=== PATIENT | female | born 1975 | race Two or more races ===

== ENCOUNTER 2025-03-15 19:40 | Inpatient (IN) | payer MEDICAID, SELFPAY ==
[2025-03-15 19:41] VITALS: BMI 32.1
[2025-03-15 19:50] VITALS: BP 117/82; PULSE 82; RESP 18; TEMP 37.1; O2SAT 97
--- NOTE | 2025-03-15 20:06 | XR_ITS ---
Examination: CT abdomen with intravenous contrast CT pelvis with intravenous contrast 2-D coronal reconstructions 2-D sagittal reconstructions Date and time of exam:March 15, 2025 at 11:37 PM INDICATIONS: Left lower abdominal pain onset today. CTDI: vol (mGy) 8.70 DLP: (mGycm) 451 Technique: Multiple axial sections of the abdomen and pelvis have been obtained. 64 slice high-resolution scanner used. 3 mm axial sections have been obtained, post intravenous injection 60 cc Isovue 370 2-D sagittal, coronal reconstructions obtained. Low dose protocols were performed. One or more of the following dose reduction techniques were used; automated exposure control, adjustment of the mA and/or KV according to patient size, use of iterative reconstruction technique. Findings: No focal liver or splenic lesions Absent gallbladder No pancreatic or adrenal mass No renal or ureteral calculi, no hydronephrosis No bowel obstruction No pericecal inflammatory change Colonic diverticulosis, acute diverticulitis distal descending colon and sigmoid colon No peridiverticular abscess Bilateral intact IMPRESSION: Acute diverticulitis junction distal descending colon and sigmoid colon No peridiverticular abscess
--- NOTE | 2025-03-15 20:06 | PD.EDRME ---
Rapid Medical Screening Exam [facility] Arrival date/time: 03/15/25 19:40 50F with history of cholecystectomy presents to ED with several days of LLQ pain. Patient denies dysuria and vaginal bleeding. Some N/V. Chief Complaint: Abdominal Pain Vital signs: Vital Signs Temperature 98.8 F 03/15/25 19:50 Pulse Rate 82 03/15/25 19:50 Respiratory Rate 18 03/15/25 19:50 Blood Pressure 117/82 03/15/25 19:50 Pulse Oximetry (%) 97 03/15/25 19:50 Oxygen Delivery Method Room Air 03/15/25 19:50
[2025-03-15 20:54] LABS: Basophils # (Auto) 0.1 Thou/mm3 (0.0-0.2); Basophils % (Auto) 0 % (0-2.5); Eosinophils # (Auto) 0.3 Thou/mm3 (0.0-0.5); Eosinophils % (Auto) 2 % (0-10); Hematocrit 38.8 % (36.0-46.0); Hemoglobin 13.9 g/dL (12.0-16.0); Immature Granulocytes % (Auto) 0 % (0-0); Immature Granulocytes Auto 0.03 Thou/mm3 (0.00-0.00); Lymphocytes % (Auto) 16 % (10-50); Mean Corpuscular HGB Conc 35.8 g/dl (31.0-37.0); Mean Corpuscular Hemoglobin 31.6 pg (25.0-35.0); Mean Corpuscular Volume 88 fL (80-100); Monocytes # (Auto) 1.2 Thou/mm3 (0.0-0.8); Monocytes % (Auto) 9 % (0-12); Neutrophils # (Auto) 9.1 Thou/mm3 (1.8-7.7); Neutrophils % (Auto) 72 % (37-80); Nucleated Red Blood Cell % 0 /100 WBC (0); Platelet Count 371 Thou/mm3 (140-440); RDW Standard Deviation 39.8 fL (36.4-46.3); White Blood Count 12.7 Thou/mm3 (3.6-11.0)
[2025-03-15 21:08] LABS: Alanine Aminotransferase 58 U/L (10-49); Albumin, Serum 4.5 gm/dL (3.5-5.0); Albumin/Globulin Ratio 1.6 (1.2-2.2); Alkaline Phosphatase 122 U/L (46-116); Anion Gap 7 (7-16); Aspartate Amino Transferase 38 U/L (0-34); BUN/Creatinine Ratio 14 Ratio (12-20); Bilirubin,Total 0.8 mg/dL (0.3-1.2); Blood Urea Nitrogen 11 mg/dL (9-23); Calcium 9.2 mg/dL (8.3-10.6); Calcium (Corrected) 9.2 mg/dL (8.5-10.1); Carbon Dioxide 26.9 mMol/L (20.0-31.0); Chloride 103 mMol/L (98-107); Creatinine (Component) 0.8 mg/dL (0.6-1.3); Estimated Creatinine Clearance 77.3 mL/min (>60); Globulin 2.8 gm/dL (2.3-3.5); Glucose 114 mg/dL (74-106); Lipase 31 U/L (12-53); Osmolality,Calculated 274 (275-295); Potassium 3.9 mMol/L (3.4-5.1); Sodium 137 mMol/L (136-145); Total Protein 7.3 gm/dL (5.7-8.2); eGFR > 60 See Note
[2025-03-15 21:23] LABS: Collection Type, Urine Clean Catch; RBC,Urine 0 /hpf (0-3)
[2025-03-15 21:46] LABS: Bacteria,Urine Rare; Bilirubin,Urine Negative (Negative); Blood,Urine Negative (Negative); Clarity,Urine Clear (Clear/Hazy); Color,Urine Lt-Yellow (Lt Yel-Yel); Glucose, Urine Negative (Negative); Ketones,Urine Negative (Negative); Leukocyte Esterase,Urine Positive (Negative); Nitrite,Urine Negative (Negative); PH,Urine 6.5 (5.0-7.0); Protein,Urine Negative (Neg - Trace); Specific Gravity,Urine 1.018 (1.001-1.035); Squamous Epithelial Cell,Urine 2 /hpf (0-5); Urobilinogen,Urine Negative mg/dL (0.0-1.0); WBC,Urine 12 /hpf (0-5)
[2025-03-15 23:09] LABS: HCG Qualitative,Urine Negative
[2025-03-16] VITALS (10 sets, daily range): BP systolic 94–155; BP diastolic 60–81; PULSE 70–88; RESP 16–99; TEMP 36.1–37.2; O2SAT 95–100; BMI 30.2
[2025-03-16] MEDS: PIPER/TAZO 3.375 GM PREMIX 3.375 GM/50 ML BAG IV ×3 (01:05→17:26)
[2025-03-16] MEDS: KETOROLAC INJ 30 MG/ML VIAL 15 MG IVP (01:17)
[2025-03-16] MEDS: ONDANSETRON INJ 2 MG/ML INJ 2 ML 4 MG IV (01:17)
--- NOTE | 2025-03-16 01:17 | EDNOTE_ITS ---
ED Abdominal Pain RME/HPI General Chief Complaint: Abdominal Pain Stated complaint: LEFT LOWER ABDOMINAL PAIN Arrival date/time: 03/15/25 19:40 RME / HPI RME / HPI narrative: 03/15/25 19:40 50F with history of cholecystectomy presents to ED with several days of LLQ pain. Patient denies dysuria and vaginal bleeding. Some N/V. ------- Dr. Pace'anjelica Main ED Evaluation: 50yo female presents to the ED for a chief complaint of LLQ pain x yesterday afternoon. Patient states her pain has been constant, reporting it's been progressively getting worse. Patient currently states her pain is severe. No radiation or migration. Patient denied any N/V at home, but has since developed N/V while here in the ED. Patient denies any fever, chills, diarrhea, constipation, cough, back pain, shortness of breath, chest pain or any other associated symptoms. She is not on any medications. Denies any history of DM or HTN. No known allergies. Patient endorses experiencing similar symptoms 6 years ago, but does not remem iftikhar what her diagnosis was at that time. Related Data Allergies Allergy/AdvReac Type Severity Reaction Status Date / Time No Known Allergies Allergy Verified 03/15/25 19:44 Review of Systems Review of Systems Systems Reviewed: All systems reviewed, normal except as documented Past Medical History Past Medical History CARDIAC: Negative Cardiac Disorders or Congestive Heart Failure RESPIRATORY: Negative Chronic Obstructive Pulmonary Disease (COPD) or Asthma GENITOURINARY: Negative Renal Disease ENDOCRINE: Negative Diabetes Mellitus Type 1 or Diabetes Mellitus Type 2 HEMATOLOGIC: Negative Sickle Cell Disease Social History SMOKING STATUS: Never smoker ED Exam Narrative Physical exam: General: Non-toxic, well appearing, in no acute distress, and appears stated age and well developed and well nourished. Vital signs: Normal. Head: Normocephalic and atraumatic. Eyes: Aproptotic, extraocular movements intact. Nose: Nares without evidence of rhinorrhea. Neck: Supple without menigismus without lympadenopathy. Heart: Regular rate and rhythm without murmur, gallops, or rubs. Lungs: Clear to auscultation without wheezing, rales, or rhonchi. Abdomen: Soft, non distended. LLQ and left mid-abdominal tenderness. No rebound. Back: No costovertebral angle tenderness. Neurological: Alert and oriented to person, place, time. Gait normal. Extremities: no cyanosis or edema. Skin: no rashes, ecchymosis, or lesions. Course Quality Measures none Orders Category Date Time Status CT Screening NOW Care 03/15/25 20:06 Active Insert IV NOW Care 03/15/25 20:[address] abdomen pelvis w con Stat Exams 03/15/25 20:06 Completed CBC Stat Lab 03/15/25 20:19 Completed CMP [Comprehensive Metabolic Panel] Stat Lab 03/15/25 20:19 Completed HCG Qualitative,Urine Stat Lab 03/15/25 20:50 Completed Lipase Stat Lab 03/15/25 20:19 Completed UA [Urinalysis] Stat Lab 03/15/25 20:50 Completed Ketorolac Inj [Toradol Inj] Med 03/16/25 01:08 Discontinued 15 mg IVP X1 ONE Morphine Inj Med 03/16/25 01:08 Active 4 mg IVP X1 PRN Ondansetron Inj [Zofran Inj] Med 03/16/25 01:08 Discontinued 4 mg IV X1 ONE Piper/Tazo 3.375 gm Premix [Zosyn] Med 03/16/25 00:51 Discontinued 3.375 gm in 50 ml IV X1 Sodium Chloride 0.9% 1000 ml [Ns] 1,434 ml Med 03/16/25 01:08 Active IV 1,434 mls/hr Vital Signs Vital signs: Vital Signs Temperature 98.8 F 03/15/25 19:50 Pulse Rate 82 03/15/25 19:50 Respiratory Rate 18 03/15/25 19:50 Blood Pressure 117/82 03/15/25 19:50 Pulse Oximetry (%) 97 03/15/25 19:50 Oxygen Delivery Method Room Air 03/15/25 19:50 Abdominal Pain MDM MDM Narrative MDM Narrative:: Scribe Attestation: 03/16/25 Emelina Rowe am scribing for and in the pre sence of Dr. Pace. Patient data External records reviewed:: [facility] previous records (Per chart review, patient has no previous ED visits or admissions to this facility.) Clinical information provided by:: patient Social determinants that could affect healthcare access:: none Patient has the following chronic illnesses:: none How is presenting disease/condition affected by chronic disease/condition?: no chronic disease Evaluation data The following diagnostics were reviewed and interpreted by me:: lab results and radiology exam(s) Lab and/or radiology exams considered but not ordered:: none Interpretation Summary: WBC count is elevated at 12.7, CMP is normal, Lipase is normal, UA is unremarkable, HCG is negative, according to my interpretation. [place] [facility] Report Signed Patient: DARLENE ALICEA Record#: [id number] Birthdate: 1975 Age/Sex: 50 / F Location: [facility] Attending Dr: Ordering Physician: Nik Bragg PA-C Date of Service: 03/15/25 Procedure(s): CT abdomen pelvis w con Accession Number(s): [id number] cc: WENDY CABRERA; Jed Strange MD; Nik Bragg PA-C~ Examination: CT abdomen with intravenous contrast CT pelvis with intravenous contrast 2-D coronal reconstructions 2-D sagittal reconstructions Date and time of exam:March 15, 2025 at 11:37 PM INDICATIONS: Left lower abdominal pain onset today. CTDI: vol (mGy) 8.70 DLP: (mGycm) 451 Technique: Multiple axial sections of the abdomen and pelvis have been obtained. 64 slice high-resolution scanner used. 3 mm axial sections have been obtained, post intravenous injection 60 cc Isovue 370 2-D sagittal, coronal reconstructions obtained. Low dose protocols were performed. One or more of the following dose reduction techniques were used; automated exposure control, adjustment of the mA and/or KV according to patient size, use of iterative reconstruction technique. Findings: No focal liver or splenic lesions Absent gallbladder No pancreatic or adrenal mass No renal or ureteral calculi, no hydronephrosis No bowel obstruction No pericecal inflammatory change Colonic diverticulosis, acute diverticulitis distal descending colon and sigmoid colon No peridiverticular abscess Bilateral intact IMPRESSION: Acute diverticulitis junction distal descending colon and sigmoid colon No peridiverticular abscess Dictated By: Jed Strange MD Signed By: <Electronically signed by Jed Strange MD in OV> 03/15/25 2352 Medications / Prescriptions Medications or Prescriptions considered but not ordered:: none Medication administrations:: Medication Administration History Sodium Chloride (Ns) 1,434 mls @ 1,434 mls/hr 30 ml/kg infuse over 60 min (1434 ml) IV .Q1H ONE Stop: 03/16/25 02:07 Last Admin: 03/16/25 01:18 Dose: 1,434 mls/hr Documented By: ERINN Morphine Sulfate (Morphine Sulf Inj 10 Mg/Ml Vial) 4 mg IVP X1 PRN PRN Reason: PAIN 1-6 (mild-mod Stop: 03/21/25 01:07 Last Admin: 03/16/25 01:19 Dose: 4 mg Documented By: ERINN Discontinued Medications Piperacillin/Tazobactam/Dextrose (Zosyn) 3.375 gm in 50 mls @ 100 mls/hr IV X1 ONE Stop: 03/16/25 01:20 Last Admin: 03/16/25 01:05 Dose: 100 mls/hr Documented By: ERINN Ketorolac Tromethamine (Ketorolac Inj 30 Mg/Ml Vial) 15 mg IVP X1 ONE Stop: 03/16/25 01:09 Last Admin: 03/16/25 01:17 Dose: 15 mg Documented By: ERINN Ondansetron HCl (Ondansetron Inj 2 Mg/Ml Inj 2 Ml) 4 mg IV X1 ONE; Protocol Stop: 03/16/25 01:09 Last Admin: 03/16/25 01:17 Dose: 4 mg Documented By: ERINN see above Consultations Consultation(s) initiated? (list below): Yes Consultation #1 (Physician, Specialty, Details): Discussed case with the resident physician, attending Dr. Bowden from Hospitalist service regarding admission. Discussed patients ED course, exam findings, labs, and radiology results. The Hospitalist agrees to accept the patient for admission. Time: 01:27 Diagnosis Differential diagnosis abdominal pain: diverticulitis and other (pneumonia, atypical presentation of appendicitis, abscess, cyst) Most likely diagnosis given after review of the tests above:: see clinical impression Admission Indicated Admission indicated?: indicated Admission Request Was there a request for admission?: Yes Admission Attestation Admission request attestation: Discussed case with [] from Hospitalist service regarding admission. Discussed patients ED course, exam findings, labs, and radiology results. The Hospitalist [agrees,declines] to accept the patient for admission. Disposition Plan Disposition Plan: Admit Discharge Plan Plan Patient Disposition: Admit Acute Care w/in Hospital Patient condition on transfer: Stable Prescriptions/Referrals Referrals: Wendy Cabrera [Primary Care Provider] - In 1 week Problem List Clinical Impression: Diverticulitis Patient/Caregiver Discharge Instructions Print Language: Hungarian Stand Alone Forms: Maye Award Info., Patient Portal Info Letter
[2025-03-16] MEDS: SODIUM CHLORIDE 0.9% 1000 ML 1,434 ML 1434 ML IV (01:18)
[2025-03-16] MEDS: MORPHINE SULF INJ 10 MG/ML VIAL 4 MG IVP (01:19)
--- NOTE | 2025-03-16 02:06 | ESHP_ITS ---
Documentation for date of: 03/16/25 [facility] History of Present Illness Chief complaint: left lower abdominal pain History of present illness: The patient is a 50-year-old female with with previous medical history of diverticulosis and hemorrhoids who came into the ED due to cramping left lower abdominal pain that started the day before and feeling of fever and chills. She reports that she had similar pain approximately 5 years ago. She underwent colonoscopy a year ago and was found to have hemorrhoids and diverticulosis. ED course: Vitals 117/82, heart rate 82, respiratory rate 18, saturating well on room air, febrile. Labs were remarkable for WBC count 12.7, AST 38, ALT 58, alkaline phosphatase 122. UA was positive for WBC count of 12, rare bacteria. Urine hCG was negative. CT of the abdomen showed acute diverticulitis in the junction of the distal descending colon and sigmoid colon, no peridiverticular abscess. Social history: Does not smoke. Medications: Denies taking medications Surgeries: Had a cholecystectomy a few months ago, status post hysterectomy and oophorectomy. Patient is going to be admitted for acute diverticulitis treatment and management. Review of Systems Review of Systems Systems Reviewed: All systems reviewed, normal except as documented Past Medical History Past Medical History CARDIAC: Negative Cardiac Disorders or Congestive Heart Failure RESPIRATORY: Negative Chronic Obstructive Pulmonary Disease (COPD) or Asthma GENITOURINARY: Negative Renal Disease ENDOCRINE: Negative Diabetes Mellitus Type 1 or Diabetes Mellitus Type 2 HEMATOLOGIC: Negative Sickle Cell Disease Social History SMOKING STATUS: Never smoker Exam Vital Signs Temp Pulse Resp BP Pulse Ox O2 Del Method 98.1 F 73 18 115/81 100 Room Air 03/16/25 00:28 03/16/25 00:28 03/16/25 00:28 03/16/25 00:28 03/16/25 00:28 03/16/25 00:28 Narrative Exam Physical Exam General: Awake and in no acute distress. Conversational and non-toxic appearing. HEENT: Normocephalic, atraumatic, mucous membranes moist. Heart: Regular rate and rhythm, no murmurs. Lungs: Right sided wheezing. Abdomen: Soft, nondistended, LLQ tenderness, positive bowel sounds. ?No guarding or rebound tenderness. Neurologic: Alert and oriented x3, no gross neurological deficit, and patient able to move all 4 extremities. Extremities: No edema. Skin: No rash or ecchymoses. Results: Labs 03/15/25 20:19 03/15/25 20:19 Labs: Short CBC 03/15/25 Range/Units 20:19 WBC 12.7 H (3.6-11.0) Thou/mm3 Hgb 13.9 (12.0-16.0) g/dL Hct 38.8 (36.0-46.0) % Plt Count 371 (140-440) Thou/mm3 BMP 03/15/25 20:19 Sodium 137 Potassium 3.9 Chloride 103 Carbon Dioxide 26.9 BUN 11 Creatinine 0.8 Glucose 114 H Calcium 9.2 Liver Function 03/15/25 Range/Units 20:19 Total Bilirubin 0.8 (0.3-1.2) mg/dL AST 38 H (0-34) U/L ALT 58 H (10-49) U/L Alkaline Phosphatase 122 H (46-116) U/L Albumin 4.5 (3.5-5.0) gm/dL Urine 03/15/25 Range/Units 20:50 Urine Color Lt-Yellow (Lt Yel-Yel) Urine Clarity Clear (Clear/Hazy) Urine pH 6.5 (5.0-7.0) Ur Specific [place] 1.018 (1.001-1.035) Urine Protein Negative (Neg - Trace) Urine Glucose (UA) Negative (Negative) Quality Measures Quality Measures VTE prophylaxis Medications Home Medications and Allergies Allergies Allergy/AdvReac Type Severity Reaction Status Date / Time No Known Allergies Allergy Verified 03/15/25 19:44 Visit Medications Acetaminophen (Acetaminophen 325 Mg Tablet) 650 mg PO Q6H PRN PRN Reason: Fever >100.3 or pain 1-3 Stop: 04/15/25 01:58 Albuterol/Ipratropium (Albuterol/Ipratropium (Duoneb) Rt Cassie 3 Ml Nebu) 3 ml INH Q2HR PRN PRN Reason: SHORTNESS OF BREATH OR WHEEZE Stop: 04/15/25 01:58 Enoxaparin Sodium (Enoxaparin Sod Inj 40 Mg/0.4 Ml Syringe) 40 mg SC QDAY CATHERINE Stop: 03/30/25 08:59 Sodium Chloride (Ns) 1,434 mls @ 1,434 mls/hr 30 ml/kg infuse over 60 min (1434 ml) IV .Q1H ONE Stop: 03/16/25 02:07 Last Admin: 03/16/25 01:18 Dose: 1,434 mls/hr Piperacillin/Tazobactam/Dextrose (Zosyn) 50 mls @ 100 mls/hr IV Q6HR CATHERINE Stop: 03/23/25 02:02 Lactated Ringer's (Lactated Ringers) 1,000 mls @ 75 mls/hr IV .[id number] CATHERINE Stop: 03/16/25 15:23 Morphine Sulfate (Morphine Sulf Inj 10 Mg/Ml Vial) 4 mg IVP X1 PRN PRN Reason: PAIN 1-6 (mild-mod Stop: 03/21/25 01:07 Last Admin: 03/16/25 01:19 Dose: 4 mg Morphine Sulfate (Morphine Sulf Inj 10 Mg/Ml Vial) 2 mg IVP Q4HR PRN PRN Reason: PAIN SCALE 7-10 (Severe Stop: 03/21/25 01:58 Ondansetron HCl (Ondansetron Inj 2 Mg/Ml Inj 2 Ml) 4 mg IV Q6H PRN; Protocol PRN Reason: NAUSEA OR VOMITING Stop: 04/15/25 01:58 Oxycodone/Acetaminophen (Oxycodone/Apap 5/325 Tablet) 1 tab PO Q6H PRN PRN Reason: PAIN SCALE 4-6 (Moderate Stop: 03/21/25 01:58 Discontinued Medications Piperacillin/Tazobactam/Dextrose (Zosyn) 3.375 gm in 50 mls @ 100 mls/hr IV X1 ONE Stop: 03/16/25 01:20 Last Infusion: 03/16/25 01:42 Dose: Infused Ketorolac Tromethamine (Ketorolac Inj 30 Mg/Ml Vial) 15 mg IVP X1 ONE Stop: 03/16/25 01:09 Last Admin: 03/16/25 01:17 Dose: 15 mg Ondansetron HCl (Ondansetron Inj 2 Mg/Ml Inj 2 Ml) 4 mg IV X1 ONE; Protocol Stop: 03/16/25 01:09 Last Admin: 03/16/25 01:17 Dose: 4 mg Assessment & Plan Plan The patient is a 50-year-old female with with previous medical history of diverticulosis and hemorrhoids who came into the ED due to cramping left lower abdominal pain that started the day before and feeling of fever and chills.Patient is going to be admitted for acute diverticulitis treatment and management. #Acute diverticulitis #History of diverticulosis Patient has been reporting cramping left lower quadrant pain. She is not febrile, hemodynamically stable, has mild leukocytosis. Imaging showed acute diverticulitis, was negative for peridiverticular abscess. Plan: ? Zosyn 3.375 every 6 hours ? N.p.o. ? Blood cultures ordered ? Pain control as needed #Concern for asthma Patient denies history of asthma, on examination was noted to have some wheezing and patient reported feeling short of breath. Plan: ? DuoNebs inhalations as needed - follow up outpatient Health maintenance: FEN: NPO DVT prophylaxis: lovenox 40 mg sc GI prophylaxis: none Dispo: medsurg CODE STATUS: Full code Plan of care discussed with attending Dr. Bowden. Donna Parks MD, PGY 1. Attending Provider Attestation/Addendum I attest that I was physically present for the evaluation, physical examination, lab and imaging review of the patient with the residents. I discussed the case with the residents and agree with the findings and plans of care as documented above. Patient is a 50 years old female with past medical history of diverticulosis and hemorrhoids who presented to the ED with complaint of cramping left lower abdominal pain which started yesterday. Patient is also having chills and feeling feverish. Patient underwent colonoscopy about a year ago and was found to have hemorrhoids and diverticulosis. In the ED, her vitals were stable, lab results were significant for WBC of 12.7, AST 38, ALT 58, ALP 122. Urinalysis showed positive leukocyte esterase, 12 WBCs and rare bacteria but patient denied any urinary symptoms. Patient had mild wheezing on exam along with tenderness around left side of abdomen without rebound tenderness. CT abdomen/pelvis was obtained, which shows acute diverticulitis at the junction of distal descending colon and sigmoid colon without peridiverticular abscess. Patient also underwent cholecystectomy recently. We will admit the patient for management of acute diverticulitis, start her on IV Zosyn, bowel rest, analgesic regimen, antiemetics. We will also obtain culture results. Tommie Bowden MD
[2025-03-16] MEDS: RINGERS LACTATED 1000 ML 1,000 ML 75 ML IV (03:03)
[2025-03-16] MEDS: PIPER/TAZO INJ 3.375 GM in SODIUM CHLORIDE 0.9% (Popper) 50 ML IV (05:17)
[2025-03-16] MEDS: ENOXAPARIN SOD INJ 40 MG/0.4 ML SYRINGE SC (09:35)
[2025-03-16 10:00] LABS: Basophils # (Auto) 0.1 Thou/mm3 (0.0-0.2); Basophils % (Auto) 1 % (0-2.5); Eosinophils # (Auto) 0.4 Thou/mm3 (0.0-0.5); Eosinophils % (Auto) 4 % (0-10); Hematocrit 36.9 % (36.0-46.0); Immature Granulocytes % (Auto) 0 % (0-0); Immature Granulocytes Auto 0.03 Thou/mm3 (0.00-0.00); Lymphocytes # (Auto) 1.6 Thou/mm3 (1.0-4.8); Lymphocytes % (Auto) 20 % (10-50); Mean Corpuscular HGB Conc 35.2 g/dl (31.0-37.0); Mean Corpuscular Hemoglobin 31.8 pg (25.0-35.0); Mean Corpuscular Volume 90 fL (80-100); Monocytes # (Auto) 0.7 Thou/mm3 (0.0-0.8); Monocytes % (Auto) 8 % (0-12); Neutrophils # (Auto) 5.6 Thou/mm3 (1.8-7.7); Neutrophils % (Auto) 67 % (37-80); Nucleated Red Blood Cell % 0 /100 WBC (0); Platelet Count 351 Thou/mm3 (140-440); RDW Standard Deviation 40.5 fL (36.4-46.3); Red Blood Count 4.09 Miln/mm3 (4.00-5.20); White Blood Count 8.3 Thou/mm3 (3.6-11.0)
[2025-03-16 10:29] LABS: Alanine Aminotransferase 46 U/L (10-49); Albumin, Serum 3.9 gm/dL (3.5-5.0); Albumin/Globulin Ratio 1.7 (1.2-2.2); Alkaline Phosphatase 106 U/L (46-116); Anion Gap 8 (7-16); Aspartate Amino Transferase 28 U/L (0-34); BUN/Creatinine Ratio 16 Ratio (12-20); Bilirubin,Total 1.1 mg/dL (0.3-1.2); Blood Urea Nitrogen 11 mg/dL (9-23); Calcium 9.2 mg/dL (8.3-10.6); Calcium (Corrected) 9.3 mg/dL (8.5-10.1); Carbon Dioxide 28.4 mMol/L (20.0-31.0); Chloride 107 mMol/L (98-107); Creatinine (Component) 0.7 mg/dL (0.6-1.3); Estimated Creatinine Clearance 85.7 mL/min (>60); Globulin 2.3 gm/dL (2.3-3.5); Glucose 104 mg/dL (74-106); Magnesium 1.9 mg/dL (1.6-2.6); Osmolality,Calculated 284 (275-295); Phosphorous 3.9 mg/dL (2.4-5.1); Potassium 4.2 mMol/L (3.4-5.1); Sodium 143 mMol/L (136-145); Total Protein 6.2 gm/dL (5.7-8.2); eGFR > 60 See Note
--- NOTE | 2025-03-16 10:59 | PD.RESPRO ---
Documentation for date of: 03/16/25 Subjective Subjective Interval history: Patient examined at bedside today. No acute overnight events. Says that her left lower abdominal pain is rated at a 2 out of 10 currently. She says her last colonoscopy was August 2024 which showed diverticulosis. This is her first bout of diverticulitis. She denies being constipated. She denies having any nausea or vomiting at this time. She is requesting to eat right now as she is hungry. No other complaints at this time. Exam Vital Signs Temp Pulse Resp BP Pulse Ox O2 Del Method 97.4 F 70 18 94/60 97 Room Air 03/16/25 08:00 03/16/25 08:00 03/16/25 08:00 03/16/25 08:00 03/16/25 08:00 03/16/25 08:00 Narrative Exam General: AAOx3, NAD, English-speaking female HEENT: Moist mucous membranes, conjunctiva clear, EOMI, PERRLA, Cardiovascular: S1, S2, radial pulses +2 bilat, RRR Pulmonary: CTAB bilat no cough, no wheezing GI: Slight tenderness palpitation in left lower quadrant, no guarding, rigidity, rebound tenderness or distension, bowel sounds present Extremities: No presence of trace or pitting edema in lower extremities bilaterally, dorsalis pedis pulses +2 bilaterally Neuro: AAOx3, no focal motor or sensory deficits in the UE or LE bilat Psych: Good judgement, thought and behavior. Cooperative Objective Labs 03/17/25 04:51 03/17/25 04:51 Labs: Laboratory Results - last 24 hr 03/15/25 03/15/25 03/16/25 20:19 20:50 09:37 WBC 12.7 H 8.3 RBC 4.40 4.09 Hgb 13.9 13.0 Hct 38.8 36.9 MCV 88 90 MCH 31.6 31.8 MCHC 35.8 35.2 RDW Std Deviation 39.8 40.5 Plt Count 371 351 Neut % (Auto) 72 67 Lymph % (Auto) 16 20 [place] % (Auto) 9 8 Eos % (Auto) 2 4 Baso % (Auto) 0 1 Neut # (Auto) 9.1 H 5.6 Lymph # (Auto) 2.0 1.6 [place] # (Auto) 1.2 H 0.7 Eos # (Auto) 0.3 0.4 Baso # (Auto) 0.1 0.1 Immature Gran # (Auto) 0.03 H 0.03 H Absolute Nucleated RBC 0.00 0.00 Immature Gran % 0 0 Nucleated RBC % 0 0 Sodium 137 143 Potassium 3.9 4.2 Chloride 103 107 Carbon Dioxide 26.9 28.4 Anion Gap 7 8 BUN 11 11 Creatinine 0.8 0.7 Estim Creat Clear Calc 77.3 85.7 eGFR > 60 > 60 BUN/Creatinine Ratio 14 16 Glucose 114 H 104 Calculated Osmolality 274 L 284 Calcium 9.2 9.2 Corrected Calcium 9.2 9.3 Phosphorus 3.9 Magnesium 1.9 Total Bilirubin 0.8 1.1 AST 38 H 28 ALT 58 H 46 Alkaline Phosphatase 122 H 106 Total Protein 7.3 6.2 Albumin 4.5 3.9 D Globulin 2.8 2.3 Albumin/Globulin Ratio 1.6 1.7 Lipase 31 Ur Collection Type Clean Catch Urine Color Lt-Yellow Urine Clarity Clear Urine pH 6.5 Ur Specific [place] 1.018 Urine Protein Negative Urine Glucose (UA) Negative Urine Ketones Negative Urine Blood Negative Urine Nitrite Negative Urine Bilirubin Negative Urine Urobilinogen (Auto) Negative Ur Leukocyte Esterase Positive Urine RBC 0 Urine WBC 12 H Ur Squamous Epith Cells 2 Urine Bacteria Rare Urine HCG, Qual Negative Quality Measures Quality Measures VTE prophylaxis Assessment & Plan Assessment Current Active Medications: Generic Name Dose Route Start Last Admin Trade Name Freq PRN Reason Stop Dose Admin Acetaminophen 650 mg 03/16/25 01:59 Acetaminophen 325 Mg Tablet PO 04/15/25 01:58 Q6H PRN Fever >100.3 or pain 1-3 Albuterol/Ipratropium 3 ml 03/16/25 01:59 Albuterol/Ipratropium (Duoneb) Rt Cassie 3 Ml Nebu INH 04/15/25 01:58 Q2HR PRN SHORTNESS OF BREATH OR WHEEZE Enoxaparin Sodium 40 mg 03/16/25 09:00 03/16/25 09:35 Enoxaparin Sod Inj 40 Mg/0.4 Ml Syringe SC 03/30/25 08:59 40 mg QDAY CATHERINE Administration Lactated Ringer's 1,000 mls @ 75 mls/hr 03/16/25 02:04 03/16/25 03:03 Lactated Ringers IV 03/16/25 15:23 75 mls/hr .[id number] CATHERINE Administration Piperacillin/Tazobactam/Dextrose 3.375 gm in 50 mls @ 12.5 mls/hr 03/16/25 09:15 03/16/25 09:34 Zosyn IV 03/23/25 09:14 12.5 mls/hr Q8H CATHERINE Administration Morphine Sulfate 2 mg 03/16/25 01:59 Morphine Sulf Inj 10 Mg/Ml Vial IVP 03/21/25 01:58 Q4HR PRN PAIN SCALE 7-10 (Severe Ondansetron HCl 4 mg 03/16/25 01:59 Ondansetron Inj 2 Mg/Ml Inj 2 Ml IV 04/15/25 01:58 Q6H PRN NAUSEA OR VOMITING Protocol Oxycodone/Acetaminophen 1 tab 03/16/25 01:59 Oxycodone/Apap 5/325 Tablet PO 03/21/25 01:58 Q6H PRN PAIN SCALE 4-6 (Moderate Plan Assessment Siena is a 50-year-old female with with previous medical history of diverticulosis and hemorrhoids who came into the ED due to cramping left lower abdominal pain that started the day before and feeling of fever and chills.Patient is going to be admitted for acute diverticulitis treatment and management. #Acute diverticulitis #History of diverticulosis Patient has been reporting cramping left lower quadrant pain. She is not febrile, hemodynamically stable, has mild leukocytosis. Imaging showed acute diverticulitis, was negative for peridiverticular abscess Patient's pain is improving, it seems to be her first bout of diverticulitis and is uncomplicated at this time as there is no abscess or sign of hypotension We will continue with IV antibiotics at this time and will likely complete antibiotic course outpatient as we will transition to oral in the near future Plan: ? Zosyn 3.375 mg every 6 hours ? Clear liquid, advance as tolerated ? Follow-up blood cultures ? Pain control as needed #? Asthma Patient denies history of asthma, on examination was noted to have some wheezing and patient reported feeling short of breath. Patient does have work history of working in the [place], could have asthma, pneumonitis or allergies or even valley fever Plan: ? DuoNebs inhalations as needed ? Consider further workup at some point #Health Maintenance Disposition: MedSurg DVT prophylaxis: Lovenox GI prophylaxis: None indicated at this time Diet: Clear liquid, advance as tolerated CODE STATUS: Full none Patient seen and care discussed with my attending physician, Dr. Nadeen Fuentes, PGY-1 Attending Provider Attestation/Addendum I have examined the patient, reviewed labs and imaging findings, discussed the case with the resident(s), and reviewed entered orders. I agree with the plan of care as outlined in this note, with these additional summaries/recommendations: Patient seen at bedside. Patient admitted overnight for acute diverticulitis. She reports minor improvement in her abdominal pain today. We will continue IV antibiotics and follow-up blood culture results when available. We will start clear liquid diet and advance as tolerated. Leukocytosis improving. Continue low-dose maintenance fluids and will titrate off pending improvement in oral intake. Continue IV Zosyn. Patient updated on the plan and in agreement. All questions answered to satisfaction. Repeat hematology and chemistry panel in AM. Dr. Nadeen MD
--- NOTE | 2025-03-16 11:33 | CHAP ---
Patient was visited by the Spiritual Care Volunteer who prayed for them. (Volunteer was in the hospital from 10:15-11:33).
--- NOTE | 2025-03-16 12:40 | PC.SS ---
SS met with patient regarding his d/c plan.? Pt is alert/oriented.? Pt was admitted for SUSP Diverticultitis.? Pt confirmed demographic and contact information is correct on facesheet.? Pt resides with son.? Pt ambulates independently without assistance or DME.? Pt is ok with all ADLs.? Patient?s pharmacy of choice is [facility] in [place].? Pt named her son, Jonas Dos Santos medical decision maker if he is unable.? Patient?s choice is to return home upon d/c.? Patient's son, Jonas will provide transportation. D/C plan:? Return home Next of Kin:? ?Levon Mcdaniel, phone# [phone] PCP:? [facility] Address:? Correct on facesheet
[2025-03-16] MEDS: ACETAMINOPHEN 325 MG TABLET 650 MG PO (13:29)
[2025-03-17] VITALS (8 sets, daily range): BP systolic 94–135; BP diastolic 56–82; PULSE 69–80; RESP 16–99; TEMP 36–36.6; O2SAT 94–99
[2025-03-17] MEDS: PIPER/TAZO 3.375 GM PREMIX 3.375 GM/50 ML BAG IV ×3 (01:35→19:19)
[2025-03-17 06:17] LABS: Basophils % (Auto) 1 % (0-2.5); Eosinophils # (Auto) 0.4 Thou/mm3 (0.0-0.5); Eosinophils % (Auto) 6 % (0-10); Hematocrit 37.5 % (36.0-46.0); Hemoglobin 12.8 g/dL (12.0-16.0); Immature Granulocytes % (Auto) 0 % (0-0); Immature Granulocytes Auto 0.02 Thou/mm3 (0.00-0.00); Lymphocytes # (Auto) 1.7 Thou/mm3 (1.0-4.8); Lymphocytes % (Auto) 26 % (10-50); Mean Corpuscular HGB Conc 34.1 g/dl (31.0-37.0); Mean Corpuscular Hemoglobin 30.8 pg (25.0-35.0); Mean Corpuscular Volume 90 fL (80-100); Monocytes # (Auto) 0.6 Thou/mm3 (0.0-0.8); Monocytes % (Auto) 9 % (0-12); Neutrophils # (Auto) 3.7 Thou/mm3 (1.8-7.7); Neutrophils % (Auto) 58 % (37-80); Nucleated Red Blood Cell % 0 /100 WBC (0); Platelet Count 374 Thou/mm3 (140-440); Red Blood Count 4.15 Miln/mm3 (4.00-5.20); White Blood Count 6.4 Thou/mm3 (3.6-11.0)
[2025-03-17 07:00] LABS: Alanine Aminotransferase 46 U/L (10-49); Albumin, Serum 3.9 gm/dL (3.5-5.0); Albumin/Globulin Ratio 1.6 (1.2-2.2); Alkaline Phosphatase 114 U/L (46-116); Anion Gap 11 (7-16); Aspartate Amino Transferase 26 U/L (0-34); BUN/Creatinine Ratio 15 Ratio (12-20); Bilirubin,Total 0.8 mg/dL (0.3-1.2); Blood Urea Nitrogen 9 mg/dL (9-23); Calcium 9.4 mg/dL (8.3-10.6); Calcium (Corrected) 9.5 mg/dL (8.5-10.1); Carbon Dioxide 29.3 mMol/L (20.0-31.0); Chloride 105 mMol/L (98-107); Creatinine (Component) 0.6 mg/dL (0.6-1.3); Globulin 2.5 gm/dL (2.3-3.5); Glucose 94 mg/dL (74-106); Osmolality,Calculated 287 (275-295); Potassium 4.1 mMol/L (3.4-5.1); Sodium 145 mMol/L (136-145); Total Protein 6.4 gm/dL (5.7-8.2); eGFR > 60 See Note
[2025-03-17] MEDS: ENOXAPARIN SOD INJ 40 MG/0.4 ML SYRINGE SC (09:00)
--- NOTE | 2025-03-17 09:13 | PC.SS ---
Follow up note: On IV antibiotic. Pt is possible dc.
--- NOTE | 2025-03-17 10:51 | CHAP ---
Patient expressed gratitude for visit and prayer.
--- NOTE | 2025-03-17 11:04 | ESPR_ITS ---
<Statement entered by Kathrine Hernandez MD - 03/17/25 22:25> Pending final culture and sensitivity results for discharge. - Patient's plan and care discussed with my attending, Dr. Nadeen Hernandez MD Internal Medicine PGY-2 Documentation for date of: 03/17/25 Subjective Subjective Interval history: Patient examined at bedside today. No acute overnight events. She had a bowel movement last night and is reporting minimal in her left lower quadrant. She has not had any fever or chills. Is requesting to eat a regular diet as she believes she can tolerate food and wants to get off the clear liquid diet. No other complaints at this time Exam Vital Signs Temp Pulse Resp BP Pulse Ox O2 Del Method 97.0 F 69 17 104/67 98 Room Air 03/17/25 07:48 03/17/25 07:48 03/17/25 07:48 03/17/25 07:48 03/17/25 07:48 03/17/25 07:48 Narrative Exam General: AAOx3, NAD, [place]er-speaking female HEENT: Moist mucous membranes, conjunctiva clear, EOMI, PERRLA, Cardiovascular: S1, S2, radial pulses +2 bilat, RRR Pulmonary: CTAB bilat no cough, no wheezing GI: Slight tenderness palpitation in left lower quadrant, no guarding, rigidity, rebound tenderness or distension, bowel sounds present Extremities: No presence of trace or pitting edema in lower extremities bilaterally, dorsalis pedis pulses +2 bilaterally Neuro: AAOx3, no focal motor or sensory deficits in the UE or LE bilat Psych: Good judgement, thought and behavior. Cooperative Objective Labs 03/18/25 04:27 03/18/25 04:27 Labs: Laboratory Results - last 24 hr 03/17/25 04:51 WBC 6.4 RBC 4.15 Hgb 12.8 Hct 37.5 MCV 90 MCH 30.8 MCHC 34.1 RDW Std Deviation 40.0 Plt Count 374 Neut % (Auto) 58 Lymph % (Auto) 26 [place] % (Auto) 9 Eos % (Auto) 6 Baso % (Auto) 1 Neut # (Auto) 3.7 Lymph # (Auto) 1.7 [place] # (Auto) 0.6 Eos # (Auto) 0.4 Baso # (Auto) 0.0 Immature Gran # (Auto) 0.02 H Absolute Nucleated RBC 0.00 Immature Gran % 0 Nucleated RBC % 0 Sodium 145 Potassium 4.1 Chloride 105 Carbon Dioxide 29.3 Anion Gap 11 BUN 9 Creatinine 0.6 Estim Creat Clear Calc 100.0 eGFR > 60 BUN/Creatinine Ratio 15 Glucose 94 Calculated Osmolality 287 Calcium 9.4 Corrected Calcium 9.5 Total Bilirubin 0.8 AST 26 ALT 46 Alkaline Phosphatase 114 Total Protein 6.4 Albumin 3.9 Globulin 2.5 Albumin/Globulin Ratio 1.6 Quality Measures Quality Measures VTE prophylaxis Assessment & Plan Assessment Current Active Medications: Generic Name Dose Route Start Last Admin Trade Name Freq PRN Reason Stop Dose Admin Acetaminophen 650 mg 03/16/25 01:59 03/16/25 13:29 Acetaminophen 325 Mg Tablet PO 04/15/25 01:58 650 mg Q6H PRN Administration Fever >100.3 or pain 1-3 Albuterol/Ipratropium 3 ml 03/16/25 01:59 Albuterol/Ipratropium (Duoneb) Rt Cassie 3 Ml Nebu INH 04/15/25 01:58 Q2HR PRN SHORTNESS OF BREATH OR WHEEZE Enoxaparin Sodium 40 mg 03/16/25 09:00 03/17/25 09:00 Enoxaparin Sod Inj 40 Mg/0.4 Ml Syringe SC 03/30/25 08:59 40 mg QDAY CATHERINE Administration Piperacillin/Tazobactam/Dextrose 3.375 gm in 50 mls @ 12.5 mls/hr 03/17/25 12:00 Zosyn IV 03/24/25 11:59 Q6HR CATHERINE Protocol Ondansetron HCl 4 mg 03/16/25 01:59 Ondansetron Inj 2 Mg/Ml Inj 2 Ml IV 04/15/25 01:58 Q6H PRN NAUSEA OR VOMITING Protocol Oxycodone/Acetaminophen 1 tab 03/16/25 01:59 Oxycodone/Apap 5/325 Tablet PO 03/21/25 01:58 Q6H PRN PAIN SCALE 4-6 (Moderate Plan Assessment Siena is a 50-year-old female with with previous medical history of diverticulosis and hemorrhoids who came into the ED due to cramping left lower abdominal pain that started the day before and feeling of fever and chills.Patient is going to be admitted for acute diverticulitis treatment and management. #Acute diverticulitis #History of diverticulosis Patient has been reporting cramping left lower quadrant pain. She is not febrile, hemodynamically stable, has mild leukocytosis. Imaging showed acute diverticulitis, was negative for peridiverticular abscess Patient's pain is improving, it seems to be her first bout of diverticulitis and is uncomplicated at this time as there is no abscess or sign of hypotension We will continue with IV antibiotics at this time and will likely complete antibiotic course outpatient as we will transition to oral in the near future Blood cultures NG1D At this point, we will continue to advance diet, give pain control and anticipate discharge tomorrow at this point Will need oral abx upon d/c Plan: ? Zosyn 3.375 mg every 6 hours ? Continue to follow-up blood cultures ? Pain control as needed #? Asthma Patient denies history of asthma, on examination was noted to have some wheezing and patient reported feeling short of breath. Patient does have work history of working in the [place], could have asthma, pneumonitis or allergies or even valley fever Plan: ? DuoNebs inhalations as needed ? Consider further workup at some point #Health Maintenance Disposition: MedSur DVT prophylaxis: Lovenox GI prophylaxis: None indicated at this time Diet: Regular CODE STATUS: Full none Patient seen and care discussed with my attending physician, Dr. Nadeen Fuentes, PGY-1 Attending Provider Attestation/Addendum I have examined the patient, reviewed labs and imaging findings, discussed the case with the resident(s), and reviewed entered orders. I agree with the plan of care as outlined in this note, with these additional summaries/recommendations: Patient seen at bedside. No acute overnight events. Patient admitted for acute diverticulitis. She reports improvement in her abdominal pain. We will continue IV antibiotics and blood cxs preliminary negative at 24 hours although we will await 48 hour bruce before patient can be safely discharged. We will advance diet from clear liquids today. Leukocytosis now resolved. S/P fluids. Continue IV Zosyn. Patient updated on the plan and in agreement. All questions answered to satisfaction. Repeat hematology and chemistry panel in AM. Dr. Nadeen MD
[2025-03-18] VITALS: BP 109/68; PULSE 74; RESP 18; TEMP 36.5; O2SAT 97
[2025-03-18] MEDS: PIPER/TAZO 3.375 GM PREMIX 3.375 GM/50 ML BAG IV ×2 (00:54→05:43)
[2025-03-18 04:00] VITALS: BP 117/68; PULSE 65; RESP 14; TEMP 36.5; O2SAT 97
[2025-03-18 06:09] LABS: Basophils # (Auto) 0.1 Thou/mm3 (0.0-0.2); Basophils % (Auto) 1 % (0-2.5); Eosinophils # (Auto) 0.4 Thou/mm3 (0.0-0.5); Eosinophils % (Auto) 7 % (0-10); Hematocrit 39.1 % (36.0-46.0); Hemoglobin 13.4 g/dL (12.0-16.0); Immature Granulocytes % (Auto) 0 % (0-0); Immature Granulocytes Auto 0.02 Thou/mm3 (0.00-0.00); Lymphocytes # (Auto) 1.8 Thou/mm3 (1.0-4.8); Lymphocytes % (Auto) 29 % (10-50); Mean Corpuscular HGB Conc 34.3 g/dl (31.0-37.0); Mean Corpuscular Hemoglobin 31.1 pg (25.0-35.0); Mean Corpuscular Volume 91 fL (80-100); Monocytes # (Auto) 0.6 Thou/mm3 (0.0-0.8); Monocytes % (Auto) 9 % (0-12); Neutrophils # (Auto) 3.3 Thou/mm3 (1.8-7.7); Neutrophils % (Auto) 54 % (37-80); Nucleated Red Blood Cell % 0 /100 WBC (0); Platelet Count 425 Thou/mm3 (140-440); RDW Standard Deviation 39.7 fL (36.4-46.3); Red Blood Count 4.31 Miln/mm3 (4.00-5.20); White Blood Count 6.1 Thou/mm3 (3.6-11.0)
[2025-03-18 06:25] LABS: Alanine Aminotransferase 40 U/L (10-49); Albumin, Serum 4.3 gm/dL (3.5-5.0); Albumin/Globulin Ratio 1.6 (1.2-2.2); Alkaline Phosphatase 116 U/L (46-116); Anion Gap 11 (7-16); Aspartate Amino Transferase 21 U/L (0-34); BUN/Creatinine Ratio 15 Ratio (12-20); Bilirubin,Total 0.7 mg/dL (0.3-1.2); Blood Urea Nitrogen 12 mg/dL (9-23); Calcium 9.2 mg/dL (8.3-10.6); Calcium (Corrected) 9.2 mg/dL (8.5-10.1); Carbon Dioxide 28.7 mMol/L (20.0-31.0); Chloride 104 mMol/L (98-107); Creatinine (Component) 0.8 mg/dL (0.6-1.3); Globulin 2.7 gm/dL (2.3-3.5); Glucose 102 mg/dL (74-106); Osmolality,Calculated 286 (275-295); Sodium 144 mMol/L (136-145); eGFR > 60 See Note
[2025-03-18 07:24] VITALS: PULSE 62; RESP 16; RESP 95; O2SAT 95
[2025-03-18 07:42] VITALS: BP 113/66; PULSE 63; RESP 18; TEMP 36.2; O2SAT 98
[2025-03-18] MEDS: ENOXAPARIN SOD INJ 40 MG/0.4 ML SYRINGE SC (08:31)
[2025-03-18 11:51] VITALS: BP 110/79; PULSE 75; RESP 18; TEMP 36.2; O2SAT 97
--- NOTE | 2025-03-18 13:35 | ESDS_ITS ---
<Statement entered by Kathrine Hernandez MD - 03/19/25 06:48> Patient was seen and examined at bedside. I agree on the discharge plan of this patient. - Patient's plan and care discussed with my attending, Dr. Nadeen Hernandez MD Internal Medicine PGY-2 Planned Discharge Date 03/18/25 DS: Providers Provider Date of admission: 03/16/25 01:58 Primary care physician: Wendy Cabrera Admitting Provider: Tommie Bowden MD Attending Provider on Admission: Tommie Bowden MD Attending Provider on DC: Hans Senior MD Discharging Provider: Hans Senior MD DS: Diagnosis Problem List Completed Was Problem List Reviewed/Reconciled?: Yes Hospital Course Hospital Course Hospital course: Siena is a 50-year-old female with with previous medical history of diverticulosis and hemorrhoids who was admitted to [facility] on March 16, 2025 for acute diverticulitis. Patient had come into the ED with a blood pressure of 170/82, heart rate 82, respiratory 18, saturating well on room air, afebrile. Patient was septic was found to have a white count of 12.7, AST ALT 30 and 58 respectively, alk phos of 122 CT abdomen showed acute diverticulitis in the junction of descending distal colon and sigmoid colon, with no DESHAWN diverticular abscess. Medicine was consulted and patient was admitted for management of acute diverticulitis. Patient was started on IV Zosyn while ad mitted in the hospital. Patient continued to improve with abdominal pain which had resolved and patient's white count had improved in addition to blood cultures being negative after 2 days. Patient's diet was advanced throughout the hospital admission and she was able to tolerate a diet. Patient was medically cleared for discharge and was recommended to follow-up with her primary care doctor regards to this hospital admission and to continue with antibiotic regimen of Ciprofloxacin and Flagyl. She is to complete a remaining 5 days to complete a 7-day course of antibiotics. She was also recommended to continue with a high-fiber diet, to start Metamucil upon completion of antibiotics and to continue with the diet low in red meat. Discharge Instructions: Follow up with PCP within one week Take medicines as prescribed Take 5 days of antibiotics as written (Ciprofloxacin twice a day and Metronidazole three times a day) Return to ER if symptoms return or worsen Problem list: #Acute diverticulitis #History of diverticulosis #Hx of hemorrhoids Discharge summary was reviewed with my attending Dr. Senior and my senior resident Dr. Mary Fuentes, PGY-1 Time Spent with Patient Time attestation: Total time spent providing and/or coordinating discharge services: Time spent: Greater than 30 minutes Exam Vital Signs Temp Pulse Resp BP Pulse Ox O2 Del Method 97.1 F 75 18 110/79 97 Room Air 03/18/25 11:51 03/18/25 11:51 03/18/25 11:51 03/18/25 11:51 03/18/25 11:51 03/18/25 11:51 Narrative Exam General: AAOx3, NAD, Maltese-speaking female HEENT: Moist mucous membranes, conjunctiva clear, EOMI, PERRLA, Cardiovascular: S1, S2, radial pulses +2 bilat, RRR Pulmonary: CTAB bilat no cough, no wheezing GI: Slight tenderness palpitation in left lower quadrant, no guarding, rigidity, rebound tenderness or distension, bowel sounds present Extremities: No presence of trace or pitting edema in lower extremities bilaterally, dorsalis pedis pulses +2 bilaterally Neuro: AAOx3, no focal motor or sensory deficits in the UE or LE bilat Psych: Good judgement, thought and behavior. Cooperative Discharge Plan Plan Patient Disposition: HOME (Self Care) Patient condition on transfer: Stable Care Plan Goals: Discharge Instructions: Follow up with PCP within one week Take medicines as prescribed Take 5 days of antibiotics as written (Ciprofloxacin twice a day and Metronidazole three times a day) Return to ER if symptoms return or worsen Instrucciones para el reena: Consulte con [facility]?dico de atenci?n primaria en el plazo de tara semana. [place] los medicamentos seg?n lo prescrito. [place] 5 d?as de antibi?ticos seg?n lo indicado (ciprofloxacino dos veces al d?a y metronidazol grace veces al d?a). Regrese a urgencias si los s?ntomas reaparecen o empeoran. Prescriptions/Referrals Prescriptions/Med Rec: New ciprofloxacin HCl [Cipro] 500 mg tablet 500 mg PO BID 5 Days Qty: 10 0RF Rx Instructions: Take one tablet by mouth twice a day for five days metronidazole 500 mg tablet 500 mg PO Q8H 5 Days Qty: 15 0RF Rx Instructions: Take one tablet by mouth three times a day for 5 days Referrals: Wendy Cabrera [Primary Care Provider] - Patient/Caregiver Discharge Instructions Discharge Activity: activity as tolerated Education Materials: Diverticulosis Diverticulitis, Discharge Instructions for ..., ED Diverticulitis Print Language: Cypriot Stand Alone Forms: Maye Award Info., Patient Portal Info Letter Discharge Order Discharge Orders: Discharge (Routine); Ordered 03/18/25 Ordered By: Ashutosh Fuentes Quality Discharge Quality Measures VTE prophylaxis (Lovenox) Attestestation MD Attestation I have examined the patient, reviewed labs and imaging findings, discussed the case with the resident(s), and reviewed entered orders. I agree with the plan of care as outlined in this note. Time Spent: [address] Nadeen MD
== END 2025-03-18 12:05 | disposition home or self-care (01) | DRG 244 ==
LOC: SERX 03-16 01:08 → SERHOLD 03-16 03:02 → S3SX 03-16 03:55
PROVIDERS: Physician Assistant; Admitting Provider Student in an Organized Health Care Education/Training Program; Emergency Provider Emergency Medicine; Visit Provider Student in an Organized Health Care Education/Training Program
DX: K57.32 Diverticulitis of large intestine without perforation or abscess without bleeding (principal); Z90.49 Acquired absence of other specified parts of digestive tract; Z90.710 Acquired absence of both cervix and uterus
CPT/HCPCS: 36415; 74177; 80053; 81001; 81025; 83690; 83735; 84100; 85025; 87040; 96361; 96365; 99285; A4649; A9270; J1650; J1885; J2270; J2405; J2543; J7030; J7120; Q9967